=== PATIENT | male | born 1945 | race Caucasian/White ===

== ENCOUNTER → 2016-09-14 | Outpatient (CLI) | payer OTHER ==
--- NOTE | 2016-09-14 13:44 | Diagnostic Imaging Report ---
EXAMINATION: Right breast diagnostic mammogram with tomography. The current study was also evaluated with a Computer Aided Detection (CAD) system. INDICATION: Lump in the medial aspect of the right breast. FINDINGS: The breasts demonstrate fatty tissue with no evidence of gynecomastia or mass. No suspicious calcification. IMPRESSION: Negative study. An ultrasound evaluation of the palpable area is pending. ACR BI-RADS Category 0: Incomplete. (Needs additional imaging evaluation). Result letter will be mailed to the patient. Note: At least 10% of breast cancer is not imaged by mammography. Dictated by: Dictated on workstation # [id number]
--- NOTE | 2016-09-14 13:55 | Diagnostic Imaging Report ---
EXAMINATION: Right breast ultrasound. INDICATION: Lump for 2 years in the medial aspect of the right breast. FINDINGS: At the 2 o'clock zone 10 cm from the nipple, there is a well defined hyperechoic lesion measuring 1.2 x 5 x 1.2 cm in size. The area on mammography appears fatty and this is probably a lipoma. IMPRESSION: The mammographic and ultrasound findings are suggestive of a 1.2 cm lipoma. Clinical followup is recommended. ACR BI-RADS Category 2: Benign findings. Dictated by: Dictated on workstation # [id number]
== END ==
LOC: RAD 12:51
DX: N63 Unspecified lump in breast (principal)
CPT/HCPCS: 77066

== ENCOUNTER 2020-05-13 08:07 | Outpatient (CLI) | payer OTHER ==
[~2020-05-13] VITALS: Ht 172.7 cm; Wt 90.9 kg
[2020-05-14] MEDS ORDERED: LOSA50TA63 PO (08:38)
[2020-05-14] MEDS ORDERED: FERR324T4 PO (08:38)
[2020-05-14] MEDS ORDERED: PANT40TA52 PO (08:38)
[2020-05-14] MEDS ORDERED: METF-397 PO (08:38)
[2020-05-14] MEDS ORDERED: LEVO50CA4 PO (08:38)
== END 2020-05-14 08:42 | disposition home or self-care (01) ==
LOC: PREOP 08:07
PROVIDERS: ATTEND Specialist
DX: Z01.818 Encounter for other preprocedural examination (principal)

== ENCOUNTER 2020-05-17 09:50 | Day surgery (SDC) | payer OTHER ==
[~2020-05-17] VITALS: Ht 172.7 cm; Wt 90.9 kg
[~2020-05-17 09:50] MED LIST: FERR324T4 PO; LEVO50CA4 PO; LOSA50TA63 PO; METF-397 PO; PANT40TA52 PO
[2020-05-17 10:14] VITALS: BP 139/84
[2020-05-17] MEDS ORDERED: POVIDONE (BETADINE) OPHTH SOLN 5% 30 ML OP ONE (10:15)
[2020-05-17] MEDS ORDERED: LIDOCAINE PF 1% 2 ML VIAL IR PRN (10:15)
[2020-05-17] MEDS ORDERED: MOXIFLOXACIN OPHTH SOLN 5 MG/ML 0.3 ML SYRINGE OP ONE (10:15)
[2020-05-17] MEDS: TETRACAINE 0.5% OPHTH SOLN 4 ML BTL (SINGLE DOSE ONLY) OU PRN ×3 (10:15→10:41)
[2020-05-17] MEDS ORDERED: TIMOLOL MALEATE 0.5% 5 ML (TIMOPTIC) BTL OU PRN (10:15)
[2020-05-17] MEDS ORDERED: MIDAZOLAM 2 MG/2 ML (VERSED) VIAL ONE (10:20)
[2020-05-17] MEDS: TROPICAMIDE 1% OPH SOLN (MYDRIACYL) 15 ML BTL OP SCH ×3 (10:29→10:41)
[2020-05-17] MEDS: PHENYLEPHRINE 10% OPHTH (NEO-SYN) 5 ML BTL OU SCH ×3 (10:29→10:41)
--- NOTE | 2020-05-17 10:36 | Ophthalmologist Pre-Op Note ---
Pre-Operative Progress Note H&P Reviewed The H&P was reviewed, patient examined and no changes noted. Date H&P Reviewed: May 17, 2020 Time H&P Reviewed: 10:36 Pre-Op Dx Cataract, Left Eye KASSY ETIENNE MD May 17, 2020 10:36
--- NOTE | 2020-05-17 11:14 | Ophthalmology Operative Report ---
Cataract removal/placement IOL PREOPERATIVE DIAGNOSIS: Cataract Left Eye POSTOPERATIVE DIAGNOSIS: Cataract Left Eye PROCEDURE: Cataract removal and placement of posterior chamber implant, left eye SURGEON: Kerwin Etienne ANESTHESIA: Topical with sedation COMPLICATIONS: None ESTIMATED BLOOD LOSS: Minimal DESCRIPTION OF PROCEDURE: After proper informed consent was obtained, the patient, a 75 male, was taken to the Operating Room and the left eye was anesthetized with tetracaine. The left eye was then prepped and draped in the usual manner. A wire lid speculum was placed. A paracentesis was made at the left hand position. Preservative free lidocaine was injected into the anterior chamber followed by viscoelastic. A clear corneal incision was made in the temporal position. A capsulorrhexis was preformed and the central nuclear and cortical material were removed. The posterior capsule was polished and an Marcello 23.0 AU00T0 was placed into the capsular bag. The residual viscoelastic was aspirated and balanced saline solution was injected into the anterior chamber. Moxifloxacin was injected into the anterior chamber. The wound was checked and found to be water tight. The patient tolerated the procedure well without complications. KERWIN ETIENNE MD May 17, 2020 11:14
[2020-05-17 11:20] VITALS: BP 136/84
[2020-05-17] MEDS ORDERED: acetaZOLAMIDE ER 500 MG CAP (DIAMOX SEQUELS) PO ONE (11:30)
--- NOTE | 2020-05-17 12:22 | Anesthesia-General Post-Op ---
MAC Patient Condition Mental Status/LOC: Same as Preop Cardiovascular: Satisfactory Nausea/Vomiting: Absent Respiratory: Satisfactory Pain: Controlled Complications: Absent Post Op Complications Complications None Follow Up Care/Instructions Patient Instructions None needed. Anesthesiology Discharge Order Discharge Order Patient is doing well, no complaints, stable vital signs, no apparent adverse anesthesia problems. No complications reported per nursing. ALBERTO TAYLOR CRNA May 17, 2020 12:22
== END 2020-05-17 11:20 | disposition home or self-care (01) ==
LOC: SDC 09:50
PROVIDERS: ATTEND Specialist
DX: H25.12 Age-related nuclear cataract, left eye (principal); I10 Essential (primary) hypertension; E11.9 Type 2 diabetes mellitus without complications; K21.9 Gastro-esophageal reflux disease without esophagitis; E03.9 Hypothyroidism, unspecified; D64.9 Anemia, unspecified; Z79.84 Long term (current) use of oral hypoglycemic drugs; Z80.9 Family history of malignant neoplasm, unspecified; Z98.890 Other specified postprocedural states; Z79.890 Hormone replacement therapy; Z79.899 Other long term (current) drug therapy
CPT/HCPCS: 82962

== ENCOUNTER 2020-05-24 09:12 | Day surgery (SDC) | payer OTHER ==
[~2020-05-24] VITALS: Ht 172 cm; Wt 90.9 kg
[2020-05-24] MEDS ORDERED: MOXIFLOXACIN OPHTH SOLN 5 MG/ML 0.3 ML SYRINGE OP ONE (09:15)
[2020-05-24] MEDS ORDERED: POVIDONE (BETADINE) OPHTH SOLN 5% 30 ML OP ONE (09:15)
[2020-05-24] MEDS ORDERED: LIDOCAINE PF 1% 2 ML VIAL IR PRN (09:15)
[2020-05-24] MEDS ORDERED: TIMOLOL MALEATE 0.5% 5 ML (TIMOPTIC) BTL OU PRN (09:15)
[2020-05-24] MEDS: TETRACAINE 0.5% OPHTH SOLN 4 ML BTL (SINGLE DOSE ONLY) OU PRN ×4 (09:29→09:46)
[2020-05-24 09:33] VITALS: BP 167/86
[2020-05-24] MEDS: TROPICAMIDE 1% OPH SOLN (MYDRIACYL) 15 ML BTL OP SCH ×3 (09:36→09:46)
[2020-05-24] MEDS: PHENYLEPHRINE 10% OPHTH (NEO-SYN) 5 ML BTL OU SCH ×3 (09:36→09:46)
[2020-05-24] MEDS ORDERED: MIDAZOLAM 2 MG/2 ML (VERSED) VIAL ONE (10:17)
--- NOTE | 2020-05-24 10:19 | Ophthalmologist Pre-Op Note ---
Pre-Operative Progress Note H&P Reviewed The H&P was reviewed, patient examined and no changes noted. Date H&P Reviewed: May 24, 2020 Time H&P Reviewed: 10:19 Pre-Op Dx Cataract, Right Eye KASSY ETIENNE MD May 24, 2020 10:19
--- NOTE | 2020-05-24 10:47 | Ophthalmology Operative Report ---
Cataract, Miotic Pupil PREOPERATIVE DIAGNOSIS: 1. Cataract Right Eye 2. Miotic Pupil POSTOPERATIVE DIAGNOSIS: 1. Cataract Right Eye 2. Miotic Pupil PROCEDURE: 1. Cataract removal and placement of posterior chamber implant, right eye 2. Pupillary expansion with malyugin ring SURGEON: Kerwin Etienne ANESTHESIA: Topical with sedation COMPLICATIONS: None ESTIMATED BLOOD LOSS: Minimal DESCRIPTION OF PROCEDURE: After proper informed consent was obtained, the patient, a 75 male, was taken to the Operating Room and the right eye was anesthetized with Tetracaine. The eye was then prepped and draped in the usual manner. A wire lid speculum was placed. A paracentesis was made at the left hand position. Preservative free lidocaine was injected into anterior chamber followed by viscoelastic. A clear corneal incision was made in the temporal position. The malyugin ring was injected into the anterior chamber and the pupil was dilated. A capsulorrhexis was preformed and the central nuclear and cortical material were removed. The posterior capsule was polished and Marcello 22.0 AU00T0 IOL was placed into the capsular bag. The malyugin ring was removed. The residual viscoelastic was aspirated and the balanced saline solution was injected into the anterior chamber. Moxifloxacin was injected into the anterior chamber. The wound was checked and found to be water tight. The patient tolerated the procedure well without complications. KERWIN TEIENNE MD May 24, 2020 10:47
[2020-05-24 10:53] VITALS: BP 173/99
[2020-05-24] MEDS ORDERED: acetaZOLAMIDE ER 500 MG CAP (DIAMOX SEQUELS) PO ONE (11:00)
--- NOTE | 2020-05-24 11:42 | Anesthesia-General Post-Op ---
MAC Patient Condition Mental Status/LOC: Same as Preop Cardiovascular: Satisfactory Nausea/Vomiting: Absent Respiratory: Satisfactory Pain: Controlled Complications: Absent Post Op Complications Complications None Follow Up Care/Instructions Patient Instructions None needed. Anesthesiology Discharge Order Discharge Order Patient is doing well, no complaints, stable vital signs, no apparent adverse anesthesia problems. No complications reported per nursing. RASHAWN CORDOVA CRNA May 24, 2020 11:42
== END 2020-05-24 10:56 | disposition home or self-care (01) ==
LOC: SDC 09:12
PROVIDERS: ATTEND Specialist
DX: E11.36 Type 2 diabetes mellitus with diabetic cataract (principal); H25.11 Age-related nuclear cataract, right eye; H57.03 Miosis; I10 Essential (primary) hypertension; K21.9 Gastro-esophageal reflux disease without esophagitis; K44.9 Diaphragmatic hernia without obstruction or gangrene; Z79.84 Long term (current) use of oral hypoglycemic drugs; Z79.899 Other long term (current) drug therapy; Z79.890 Hormone replacement therapy

== ENCOUNTER 2022-05-26 16:32 | Outpatient (CLI) | payer OTHER ==
[~2022-05-26] VITALS: Ht 172.7 cm; Wt 92.8 kg
[2022-05-26] MEDS ORDERED: QUIN324C4 PO (17:45)
[2022-05-26] MEDS ORDERED: ASPI-999 PO (17:45)
== END 2022-05-26 18:11 ==
LOC: PREOP 16:32
PROVIDERS: ATTEND Surgery
DX: Z01.818 Encounter for other preprocedural examination (principal); R19.00 Intra-abdominal and pelvic swelling, mass and lump, unspecified site; R22.2 Localized swelling, mass and lump, trunk

== ENCOUNTER 2022-05-27 13:08 | Day surgery (SDC) | payer OTHER ==
--- NOTE | 2022-05-26 16:44 | HISTORY AND PHYSICAL ---
DATE OF ADMISSION: Will be 05/27/2022. ATTENDING PRIMARY RESIDENTIAL DIRECTOR: [facility] in [place], [place]. HISTORY OF PRESENT ILLNESS: The patient was seen in the office with chief complaint with a lump of the right chest as well as the left lower abdomen, which had been around for approximately a year and a half and have grown larger in size and does rub against a seatbelt and since that time has caused a significant amount of pain. Upon examination, he has a lesion of the right chest and left lower abdomen, both approximately 3 x 2 cm in size, well encapsulated and movable consistent with benign lipomas. He states that many years ago, he had approximately 18. These removed and they were found to be benign. Since that time, he has not had any recurrences up until now. PAST MEDICAL HISTORY: Hypertension, hypercholesterolemia, hypothyroid, benign prostatic hypertrophy, non-insulin dependent diabetes. PAST SURGICAL HISTORY: Open hiatal hernia repair in 80s. ALLERGIES: No known drug allergies. MEDICATIONS: Amlodipine 10 mg daily, aspirin 81 mg daily, levothyroxine 50 mcg daily, losartan 50 mg daily, Protonix 40 mg daily, rosuvastatin 10 mg daily, tamsulosin 0.4 mg daily, metformin 500 mg b.i.d. SOCIAL HISTORY: Negative smoke, negative alcohol. FAMILY HISTORY: He comes from a large family, but knows that a few sisters did have some form of malignancy. VITAL SIGNS: Blood pressure 150/70, current weight 204.2 pounds at 5 feet 8 inches. REVIEW OF SYSTEMS: Well-nourished male in no acute distress. He is not experiencing shortness of breath or difficulty breathing. No chest pain, palpitations, diaphoresis. No nausea, vomiting. No diarrhea or constipation. No fever, chills, no recent inadvertent weight loss. All other review of systems negative. PHYSICAL EXAMINATION: CHEST: Good breath sounds bilaterally. HEART: Regular. No murmurs. EXTREMITIES: No lower extremity edema. Negative Homans sign. HEENT: No scleral icterus. No cervical lymphadenopathy. ABDOMEN: Soft, nontender, nondistended. SKIN: There is a palpable subcutaneous lesion of the right upper chest and left lower abdomen, both approximately 3.2 cm in size and oval in shape, well circumscribed and easily movable; however, tender to palpation. ASSESSMENT AND PLAN: A 77-year-old male with symptomatic left upper chest and left lower abdominal lipomas secondary to irritation from his seatbelt. The natural history of lipomas were explained to the patient as well as the risks are increased growth and pain and he would like to proceed with excision of both of these lipomas, which we will schedule under MAC anesthesia. Job ID: [id number] DocumentID: [id number] Dictated Date: 05/26/2022 16:25:37 Iron Piler Date: 05/26/2022 16:43:00 Dictated By: PHIL SUNSHINE MD [facility]ENTERCarl
[~2022-05-27] VITALS: Ht 172.7 cm; Wt 92.6 kg
[2022-05-27] VITALS (7 sets, daily range): BP systolic 113–150; BP diastolic 58–82
[~2022-05-27 13:08] MED LIST changes: +ASPI-999 PO; +QUIN324C4 PO
--- NOTE | 2022-05-27 13:32 | Progress Note-Pre Operative ---
Pre-Operative Progress Note Date of Available H&P: May 27, 2022 Date H&P Reviewed: May 27, 2022 Time H&P Reviewed: 13:00 History & Physical: No changes noted Pre-Operative Diagnosis: sx lipoma right chest and left lower abd PHIL SUNSHINE MD May 27, 2022 13:31
--- NOTE | 2022-05-27 13:33 | Discharge Inst-Surgical ---
D/C Lap Instructions-BITA Follow Up Appt in 2 weeks Activity as tolerated No driving for 24 hours No driving while on pain medications Incentive Spirometry use every 2 hours while awake Regular Diet Symptoms to Report: Fever over 101 degree F, Nausea/Vomiting Infection Signs and Symptoms to report: Increased redness, Foul odor of wound, Increased drainage Bathing instructions: May shower Operative Area Clean/Dry; Keep incision clean/dry If any problems/questions: Contact your physician or go to Emergency Room PHIL SUNSHINE MD May 27, 2022 13:33
[2022-05-27] MEDS ORDERED: morphine INJ 10 MG/ML 1ML (SYR OR VIAL) IVP PRN ×2 (13:45)
[2022-05-27] MEDS ORDERED: ACETAMINOPHEN 325 MG TABLET PO PRN (13:45)
[2022-05-27] MEDS ORDERED: ONDANSETRON 4 MG/2 ML (SDV) Z0FRAN IVP PRN ×2 (13:45→15:45)
[2022-05-27] MEDS ORDERED: HYDROcodone/APAP 5 MG/325 MG (LORTAB) TAB PO ONE (13:45)
[2022-05-27] MEDS ORDERED: ceFAZolin INJECTION 2,000 MG in NS (IVPB) 50 ML IV ONE (14:00)
[2022-05-27] MEDS ORDERED: BUP/EPI 0.5% 1:200,000 (SENSORCAINE) 30 ML VIAL ONE (14:20)
[2022-05-27] MEDS ORDERED: PROPOFOL INJECTION 50 ML IV ONE (14:42)
[2022-05-27] MEDS ORDERED: LACTATED RINGERS 1,000 ML IV PRN (14:45)
--- NOTE | 2022-05-27 15:17 | Progress Note-Post Operative ---
Post-Operative Progess Note Surgeon (s)/Jewelry Designer (s) Surgeon PHIL SUNSHINE MD Jewelry Designer: none Pre-Operative Diagnosis sx lipoma right chest and left lower abd Post-Operative Diagnosis same: right chest 3x2cm, left lower [id number]. Procedure & Operative Findings Date of Procedure 05/27/22 Procedure Performed/Findings excision right chest subcutaneous lesion 3x2cm, left lower [id number]. Anesthesia Type mac with local Estimated Blood Loss Estimated blood loss (mL): minimal Specimens/Packing Specimens Removed chest and abd wall lipoma. PHIL SUNSHINE MD May 27, 2022 15:17
[2022-05-27] MEDS ORDERED: BUP/EPI 0.5% 1:200,000 (SENSORCAINE) 30 ML VIAL INJ ONE (15:34)
--- NOTE | 2022-05-27 15:34 | Anesthesia-General Post-Op ---
MAC Patient Condition Mental Status/LOC: Same as Preop Cardiovascular: Satisfactory Nausea/Vomiting: Absent Respiratory: Satisfactory Pain: Controlled Complications: Absent Post Op Complications Complications None Follow Up Care/Instructions Patient Instructions None needed. Anesthesiology Discharge Order Discharge Order Patient is awake in PACU and doing well, no complaints, stable vital signs, no apparent adverse anesthesia problems. No complications reported per nursing. ODILON BATISTA DO May 27, 2022 15:34
[2022-05-27] MEDS ORDERED: morphine INJ 10 MG/ML 1ML (SYR OR VIAL) IVP ONE (15:45)
--- NOTE | 2022-05-27 22:23 | OPERATIVE REPORT ---
DATE OF SERVICE: 05/27/2022 ATTENDING TERRITORY SALES CONSULTANT: [facility] in [place], [place]. PREOPERATIVE DIAGNOSIS: Symptomatic right upper chest and left lower abdomen subcutaneous lipomas. POSTOPERATIVE DIAGNOSIS: Symptomatic right upper chest and left lower abdomen subcutaneous lipomas with both of the lesions approximately 3 x 2 cm in size. PROCEDURE: Excision of subcutaneous lipoma, right chest, 3 x 2 cm in size, left lower abdomen 3 x 2 cm. SURGEON: Phil Sunshine MD ANESTHESIA: MAC with local. ESTIMATED BLOOD LOSS: Minimal. FINDINGS: Lesions consistent with benign lipomas. DISPOSITION: The patient tolerated the procedure well. INDICATIONS: The patient is a 77-year-old male who was seen in the office for symptomatic lesion of the right upper chest as well as the left lower abdomen. He states that these have been around for a few years; however, has worsened. Both of the areas are areas that are covered by his seatbelt and he states that over time, this has caused significant irritation and pain. He also reports that the lesions have grown slightly larger in size over time. Upon examination, he was found to have two subcutaneous nodules, one in the right upper chest and left lower abdomen, which were well circumscribed rubbery easily mobile and consistent with subcutaneous benign lipomas. DESCRIPTION OF PROCEDURE: The patient was brought to the operating room, laid supine on the table. After adequate IV pain and sedative medications and monitored anesthesia care, the chest and abdomen were prepped and draped in standard surgical fashion. A 0.5% Marcaine with epinephrine was then used to anesthetize the overlying skin to both of the lesions. The left upper chest lesion was then first excised with a transverse skin incision using a #15 blade. The lesion was identified and completely dissected out using blunt dissection as well as electrocautery with visualization of good hemostasis. This lesion was approximately 3 x 2 cm in size. Skin was closed using 4-0 Monocryl running subcuticular suture. The left lower abdominal lesion was excised in a similar manner. A transverse skin incision was made using #15 blade. The lesion was then excised using pressure as well as blunt dissection and electrocautery with visualization of good hemostasis. This lesion was the same size 3 x 2 cm in size. Good hemostasis was observed and the skin was reapproximated using 4-0 Monocryl running subcuticular suture. Both wounds were then cleaned and covered with Dermabond. The patient tolerated the procedure well. We will start IV normal pain medication as well as a clear liquid diet. Once tolerating clears, has good pain control with oral pain medications, ambulating well. We will discharge him home where he may do all of his normal activities and does not have any major restrictions. Job ID: [id number] DocumentID: [id number] Dictated Date: 05/27/2022 15:22:56 Senior Sustainability Consultant Date: 05/27/2022 22:22:00 Dictated By: PHIL SUNSHINE MD
== END 2022-05-27 16:50 | disposition home or self-care (01) ==
LOC: SDC 13:08
PROVIDERS: ATTEND Surgery
DX: D17.1 Benign lipomatous neoplasm of skin and subcutaneous tissue of trunk (principal); E66.9 Obesity, unspecified; Z68.31 Body mass index [BMI] 31.0-31.9, adult
CPT/HCPCS: 82947; 87081; 94664